=== PATIENT | male | born 1960 | race Caucasian/White ===

== ENCOUNTER 2019-10-08 06:26 | Day surgery (SDC) | payer MEDICARE, MEDICAID ==
[~2019-10-08] VITALS: Ht 162.6 cm; Wt 40.8 kg
[~2019-10-08 06:26] MED LIST: CALCIUM + D PO; CETIRIZINE10 MG PO; FERROUS GLUC324 MG PO; FLONASE AL50 MCG/ACT IN; FOSAMAX PLUS1 TAB PO; GLUCERNA SHAKE PO; KEPPRA XR500 MG PO; LISINOPRIL10 MG PO; LOVASTATIN40 M1 PO; METOPROL TAR25 MG PO; OMEPRAZOLE10 MG PO; PHENYTOIN EX100 M1 PO; PHENYTOIN EX100 MG PO; REGLAN10 MG PO; VITAMIN B-12500 MCG PO
[2019-10-08 10:00] VITALS: BP 115/68
== END 2019-10-08 10:14 | disposition home or self-care (01) ==
LOC: ENDO 06:26 → ORM 12:15 → ENDO 12:15
PROVIDERS: ATTEND Internal Medicine Gastroenterology
PROC: 0DB48ZX Excision of Esophagogastric Junction, Via Natural or Artificial Opening Endoscopic, Diagnostic (ICD-10-PCS; principal; 2019-10-08)
PROC: 0D758ZZ Dilation of Esophagus, Via Natural or Artificial Opening Endoscopic (ICD-10-PCS; 2019-10-08)
DX: K22.2 Esophageal obstruction (principal); Q39.8 Other congenital malformations of esophagus; K21.0 Gastro-esophageal reflux disease with esophagitis; K29.70 Gastritis, unspecified, without bleeding; K44.9 Diaphragmatic hernia without obstruction or gangrene; Q40.8 Other specified congenital malformations of upper alimentary tract; E11.9 Type 2 diabetes mellitus without complications; F79 Unspecified intellectual disabilities; G80.9 Cerebral palsy, unspecified; Z93.3 Colostomy status; Z11.59 Encounter for screening for other viral diseases